=== PATIENT | male | born 1995 | race Caucasian/White ===

== ENCOUNTER 2021-11-07 14:47 | Emergency (ER) | payer SELFPAY ==
[~2021-11-07] VITALS: Ht 177.8 cm; Wt 86.0 kg
[2021-11-07 14:55] VITALS: BP 152/72
[2021-11-07] MEDS ORDERED: MUPI22OI2 TP (15:36)
[2021-11-07] MEDS ORDERED: SULF1TAB24 PO (15:36)
--- NOTE | 2021-11-07 15:36 | PHYS DOC ---
Past Medical History Past Surgical History: No Surgical History General Adult EDM: Chief Complaint: SKIN PROBLEM HPI: HPI: Patient is a 26-year-old male presents emerge department complaining of skin infection to the back of his neck. Patient reported feeling bumps 3 days ago and has noticed they become larger, today complains of itching with pain to touch over the infection sites of the back of his neck. Patient denies recent fever or chills, denies other physical complaints or physical concerns, reports his last tetanus immunization was less than 5 years ago, denies taking pain medications or trying other nonpharmacological pain relief methods. Patient states he has been cleaning the area daily in the shower. Patient denies headaches, fevers or chills, denies chest pain, denies ear pain or throat pain. Patient denies abdominal pain, nausea, vomiting, diarrhea, denies dizziness, syncopal or near syncopal episodes, denies headaches. Patient denies other physical complaints or physical concerns. Review of Systems: Review of Systems: 14 body systems of review of systems have been reviewed. See HPI for pertinent positives and negative responses, otherwise all other systems are negative, nonpertinent or noncontributory. Constitutional: Negative except as outlined in HPI above. Skin: Negative except as outlined in HPI above. Eyes: Negative except as outlined in HPI above. HENT: Negative except as outlined in HPI above. Respiratory: Negative except as outlined in HPI above. Cardiovascular: Negative except as outlined in HPI above. GI: Negative except as outlined in HPI above. : Negative except as outlined in HPI above. Musculoskeletal: Negative except as outlined in HPI above. Integument: Negative except as outlined in HPI above. Neurologic: Negative except as outlined in HPI above. Endocrine: Negative except as outlined in HPI above. Lymphatic: Negative except as outlined in HPI above. Psychiatric: Negative except as outlined in HPI above. Heart Score: C/O Chest Pain: No Risk Factors: Risk Factors: DM, Current or recent (<one month) smoker, HTN, HLP, family history of CAD, obesity. Risk Scores: Score 0 - 3: 2.5% MACE over next 6 weeks - Discharge Home Score 4 - 6: 20.3% MACE over next 6 weeks - Admit for Clinical Observation Score 7 - 10: 72.7% MACE over next 6 weeks - Early Invasive Strategies Physical Exam: PE: Constitutional: Well developed, well nourished, no acute distress, non-toxic appearance. 26-year-old male in no apparent distress. HENT: Normocephalic, atraumatic. Oropharynx moist, pink, no deep tissue infection freshest appreciated, no drooling, no trismus, bilateral TMs intact and within normal limits, there are 3 abscesses to the occipital area skin surface of the scalp, 2.5 cm induration, each abscess has a central punctum with drainage from the center abscess, yellow crusting. Eyes: Conjunctiva normal, no discharge. Neck: Normal range of motion, no stridor. No nuchal rigidity, no meningeal signs. Cardiovascular: No cyanosis appreciated, distal cap refill less than 2 seconds. Lungs & Thorax: Patient is in no respiratory distress, lung sounds are clear to auscultation all lung deluna. Abdomen: Nontender, no abnormalities noted. Skin: Warm, dry, no erythema, no rash. See HEENT note for focused skin examination. Back: No tenderness, no deformities. Extremities: No tenderness, no cyanosis, no clubbing, ROM intact, no edema. Neurologic: Alert and oriented X 3, normal motor function, normal sensory function, no focal deficits noted. Psychologic: Affect normal, judgement normal, mood normal. Current Patient Data: Vital Signs: Vital Signs Date Time Temp Pulse Resp B/P (MAP) Pulse Ox O2 Delivery O2 Flow Rate FiO2 11/07/21 14:55 98.2 89 18 152/72 (98) 98 Room Air 98.2 EKG: EKG: [] Radiology/Procedures: Radiology/Procedures: [] Course & Med Decision Making: Course & Med Decision Making Pertinent Labs and Imaging studies reviewed. (See chart for details) 26-year-old male, reviewed, presents emergency department concerning infections to the back of his head. Physical examination concerning for abscesses. Patient does complain of mild itching, will treat with p.o. Benadryl, will start on Bactrim DS antibiotic regimen. Patient does have yellow crusting and visual presentation similar to impetigo, will also cover with topical mupirocin ointment. Discussed ED treatment planning with patient, patient states he is only in town till the end of the day as he lives in [facility] and is driving home this evening. Discussed with patient strict follow-up with primary care physician back in [facility] when he arrives home for reevaluation of infection. Reviewed return to ER precautions or concerns, patient gave verbal understanding of and is amenable to ED discharge planning. Discussed with the patient all findings and diagnostic testing as well as the need to follow-up with their primary care provider for further evaluation and treatment or return to the ED if any new or worsening symptoms. Strict return precautions were also discussed at length, the patient voiced understanding and agreement with the discharge planning. The patient was nontoxic in appearance, in no apparent distress, and hemodynamically stable at the time of disposition. [employer] Disclaimer: [employer] Disclaimer: This electronic medical record was generated, in whole or in part, using a voice recognition dictation system. Departure Departure Impression: Primary Impression: Abscess Disposition: HOME / SELF CARE / HOMELESS Condition: GOOD Referrals: NO PCP (PCP) Patient Instructions: Abscess Additional Instructions: You were seen today in the emergency department for an infection of the skin on the back of your neck. You were given a Benadryl today for your itching and started on your antibiotic. I have prescribed an oral antibiotic and topical antibiotic, please use as directed until complete. As we discussed when you return home to [place], please make an appointment with your primary care provider for reevaluation of this infection. Please return to the emergency department for worsening symptoms or other concerns. Thank you for visiting our Emergency Department. It was a pleasure taking care of you today in the emergency department and we appreciate you trusting us with your care. If any additional problems come up don't hesitate to return to visit us. Please follow up with your primary care provider so they can plan additional care if needed and know about the problem that you had. If symptoms worsen come back to the Emergency Department. Any concerning symptoms that start such as chest pain, shortness of air, weakness or numbness on one side of the body, running high fevers or any other concerning symptoms return to the ER. Scripts Sulfamethoxazole/Trimethoprim (BACTRIM DS TABLET) 1 Each Tablet 1 TAB PO BID for skin infection for 7 Days, #14 TAB 0 Refills Prov: JESSICA BRISENO APRN 11/07/21 Mupirocin (MUPIROCIN OINTMENT) 22 Gm Oint...g. 1 THALIA TP TID for WOUND CARE, #1 TUBE 0 Refills Prov: JESSICA BRISENO APRN 11/07/21 JESSICA BRISENO APRN Nov 07, 2021 15:36
[2021-11-07] MEDS ORDERED: SMZ/TMP 800/160MG TABLET. PO ONE (16:00)
[2021-11-07] MEDS ORDERED: diphenhydrAMINE HCL 25 MG CAPSULE PO ONE (16:00)
== END 2021-11-07 15:30 | disposition home or self-care (01) ==
LOC: ER 14:47
DX: L02.11 Cutaneous abscess of neck (principal)
CPT/HCPCS: 99283; Q0163